=== PATIENT | male | born 2000 ===

== ENCOUNTER 2024-03-25 10:00 | Inpatient (IN) | payer OTHER ==
[~2024-03-25] VITALS: Ht 175.3 cm; Wt 77.1 kg
[2024-03-25] MEDS ORDERED: INFLECTRA100 MG IV (11:56)
[2024-03-25 11:57] VITALS: BP 139/75
[2024-03-31] MEDS ORDERED: HYDROCORTISONE SODIUM SUCC/PF 100 MG VIAL ONE (12:27)
[2024-03-31] MEDS ORDERED: LIDOCAINE HCL 1%/EPINEPHRINE 20ML VIAL IJ ONE (12:47)
[2024-03-31] MEDS ORDERED: BUPIVACAINE HCL/MPF 0.5% 30ML VIAL ONE (12:47)
[2024-03-31] MEDS ORDERED: CEFTRIAXONE SODIUM 2,000 MG VIAL ONE (12:52)
[2024-03-31] MEDS ORDERED: METRONIDAZOLE/SODIUM CHLORIDE 500 MG/100 ML PIGGYBACK IV ONE (12:52)
[2024-03-31] MEDS ORDERED: SUGAMMADEX SODIUM 200 MG/2 ML VIAL IV ONE (13:27)
[2024-03-31] MEDS ORDERED: MORPHINE SULFATE 4 MG/ML VIAL IV ONE ×3 (16:50→18:05)
[2024-03-31] MEDS ORDERED: SIMETHICONE 125 MG CAPSULE PO SCH (17:00)
[2024-03-31] MEDS ORDERED: GABAPENTIN 300 MG CAPSULE PO SCH (17:00)
[2024-03-31] MEDS ORDERED: METOCLOPRAMIDE HCL 5 MG/ML VIAL IV SCH (17:00)
[2024-03-31] MEDS ORDERED: RINGERS SOLUTION,LACTATED 1,000 ML IV SCH (17:00)
[2024-03-31] MEDS ORDERED: OxyCODONE HCL 5 MG TABLET (ROXICODONE) PO PRN (17:00)
[2024-03-31] MEDS ORDERED: MORPHINE SULFATE 4 MG/ML CARTRIDGE IV PRN (17:00)
[2024-03-31] MEDS ORDERED: ONDANSETRON HCL 2 MG/ML VIAL IV PRN (17:00)
[2024-03-31] MEDS ORDERED: HYOSCYAMINE SULFATE 0.125 MG TAB.SUBL SL SCH (17:00)
[2024-03-31] MEDS ORDERED: METOCLOPRAMIDE HCL 5 MG/ML VIAL ONE (18:07)
[2024-03-31] MEDS ORDERED: SIMETHICONE 125 MG CAPSULE PO ONE (18:08)
[2024-03-31] MEDS ORDERED: GABAPENTIN 300 MG CAPSULE PO ONE (18:09)
[2024-03-31] MEDS ORDERED: HYOSCYAMINE SULFATE 0.125 MG TAB.SUBL ONE (18:09)
[2024-03-31] MEDS ORDERED: ACETAMINOPHEN 500 MG GEL..CAP PO ONE (19:28)
[2024-03-31] MEDS ORDERED: ACETAMINOPHEN 500 MG GEL..CAP PO SCH (20:00)
[2024-03-31 20:25] VITALS: BP 121/71; O2SAT 98
[2024-03-31 20:34] LABS: HEMATOCRIT 42.9 % (39.0-48.0); HEMOGLOBIN 14.5 g/dL (13-16.00); MEAN CELL VOLUME 90.4 fL (80.0-100.00); MEAN CORPUSCULAR HEMOGLOBIN 30.7 pg (27.00-32.0); MEAN CORPUSCULAR HGB CONC 33.9 g/dl (32.0-36.0); PLATELET COUNT 153 K/uL (150-450); RED BLOOD COUNT 4.74 M/uL (4.00-6.00); RED CELL DISTRIBUTION WIDTH 13.4 % (11.5-14.5)
[2024-03-31] MEDS ORDERED: FAMOTIDINE/PF 20 MG/2 ML VIAL IV PUSH SCH (21:00)
[2024-03-31] MEDS ORDERED: CELECOXIB 200 MG CAPSULE PO SCH (21:00)
[2024-03-31] MEDS ORDERED: MEPERIDINE HCL/PF 50 MG/ML VIAL IV STA (21:38)
[2024-03-31] MEDS ORDERED: MEPERIDINE HCL/PF 50 MG/ML VIAL IV PRN (21:45)
[2024-03-31] MEDS ORDERED: KETOROLAC TROMETHAMINE 30 MG VIAL IV ONE (21:45)
[2024-04-01] VITALS: BP 91/55; O2SAT 95
[2024-04-01 08:00] VITALS: BP 109/57; O2SAT 97
[2024-04-01 08:25] LABS: HEMATOCRIT 38.3 % (39.0-48.0); HEMOGLOBIN 13.7 g/dL (13-16.00); MEAN CELL VOLUME 87.3 fL (80.0-100.00); MEAN CORPUSCULAR HEMOGLOBIN 31.1 pg (27.00-32.0); MEAN CORPUSCULAR HGB CONC 35.6 g/dl (32.0-36.0); PLATELET COUNT 137 K/uL (150-450); RED BLOOD COUNT 4.39 M/uL (4.00-6.00); RED CELL DISTRIBUTION WIDTH 12.9 % (11.5-14.5)
[2024-04-01] MEDS ORDERED: LACTOBACILLUS ACIDOPHILUS 1 CAP CAP PO SCH (09:00)
[2024-04-01 09:16] LABS: ALBUMIN 3.5 gm/dL (3.4-5.0); CALCIUM 8.7 mg/dL (8.5-10.1); CREATININE SERUM 0.64 mg/dL (0.70-1.30); GFR 153.64; MAGNESIUM 1.6 mg/dL (1.8-2.4); PHOSPHOROUS 3.4 mg/dL (2.5-4.9); POTASSIUM 3.76 mEq/L (3.5-5.1)
[2024-04-01] MEDS ORDERED: HYDROCORTISONE SODIUM SUCC/PF 100 MG VIAL IV STA (09:47)
[2024-04-01] MEDS ORDERED: MAGNESIUM SULFATE IN WATER 50 ML IV NR (11:15)
[2024-04-01] MEDS ORDERED: HYDROCORTISONE SODIUM SUCC/PF 50 MG/ML ML IV SCH (17:00)
[2024-04-01] MEDS ORDERED: ENOXAPARIN SODIUM 40 MG/0.4 ML SYRINGE SUBCUTANEO SCH (17:00)
[2024-04-01 18:33] VITALS: BP 115/67; O2SAT 98
[2024-04-02 01:12] VITALS: BP 108/63; O2SAT 100
[2024-04-02 08:00] VITALS: BP 112/67; O2SAT 99
[2024-04-02] MEDS ORDERED: HYDROCORTISONE SODIUM SUCC/PF 50 MG/ML ML IV SCH ×2 (09:00→21:00)
[2024-04-02] MEDS ORDERED: ENOXAPARIN SODIUM 40 MG/0.4 ML SYRINGE SUBCUTANEO SCH (09:00)
[2024-04-02 09:54] LABS: HEMATOCRIT 39.4 % (39.0-48.0); HEMOGLOBIN 12.9 g/dL (13-16.00); MEAN CELL VOLUME 91.4 fL (80.0-100.00); MEAN CORPUSCULAR HGB CONC 32.8 g/dl (32.0-36.0); PLATELET COUNT 133 K/uL (150-450); RED BLOOD COUNT 4.31 M/uL (4.00-6.00); RED CELL DISTRIBUTION WIDTH 13.1 % (11.5-14.5)
[2024-04-02 11:07] LABS: CALCIUM 8.7 mg/dL (8.5-10.1); CREATININE SERUM 0.59 mg/dL (0.70-1.30); GFR 168.77; MAGNESIUM 2.1 mg/dL (1.8-2.4); PHOSPHOROUS 2.6 mg/dL (2.5-4.9); POTASSIUM 4.03 mEq/L (3.5-5.1)
[2024-04-02 17:10] VITALS: BP 106/68; O2SAT 99
[2024-04-03] VITALS: BP 105/60; O2SAT 99
[2024-04-03] MEDS ORDERED: NEURONTIN300 MG PO (08:31)
[2024-04-03] MEDS ORDERED: INTESTINEX680 M1 PO (08:31)
[2024-04-03] MEDS ORDERED: TRAMADOL HCL50 MG PO (08:32)
== END 2024-04-03 13:43 | disposition home or self-care (01) | DRG 331 ==
LOC: SURH 03-31 07:00 → O/R 03-31 08:53 → SURH 03-31 10:00
PROVIDERS: Internal Medicine Geriatric Medicine; ADMIT Surgery; ATTEND Surgery
PROC: 0DTF4ZZ Resection of Right Large Intestine, Percutaneous Endoscopic Approach (ICD-10-PCS; principal; 2024-03-31 07:00)
DX: K50.012 Crohn's disease of small intestine with intestinal obstruction (principal); R59.0 Localized enlarged lymph nodes